=== PATIENT | female | born 1975 | race Caucasian/White ===

== ENCOUNTER → 2023-07-13 | Emergency (ER) | payer OTHER ==
[~2023-07-13] MED LIST: ACETAMINOPHEN 1000 MG/100 ML BAG IVPB ONE; ACETAMINOPHEN 325 MG TABLET (FP) ONE; ACETAMINOPHEN 500 MG TABLET (FP) ONE; ACETAMINOPHEN 500 MG TABLET (FP) PO ONE; IBUPROFEN 600 MG TABLET (FP) PO ONE
[2023-07-13 09:02] VITALS: BP 133/70; PULSE 77; RESP 20; TEMP 98.1; BMI 32.8
[2023-07-13 10:33] LABS: EOS % 3.7 % (0-4.5); HEMOGLOBIN 11.5 GM/dL (10.7-15.3); LYMPH % 31.6 % (8-40); MCH 27.3 pg (25.7-33.7); MCHC 32.8 g/dl (32.0-36.0); MEAN CELL VOLUME 83.4 fl (80-96); MEAN PLT VOLUME 7.8 fl (7.5-11.1); NEUT % 55.7 % (42.8-82.8); PLATELET COUNT 414 10^3/uL (134-434); RDW 15.7 % (11.6-15.6); WHITE BLOOD COUNT 7.9 K/mm3 (4.0-10.0)
[2023-07-13 10:52] LABS: URINE APPEARANCE CLOUDY; URINE COLOR RED
[2023-07-13 10:56] LABS: EPI CELLS 0 /uL (0-25.1); HCG,QUALITATIVE URINE Negative; HYALINE CASTS 0 /uL (0-3.1); PH,URINE 6.5 (5.0-8.0); URINE BACTERIA 52 /uL (0-1359); URINE BILIRUBIN NEGATIVE (NEGATIVE); URINE GLUCOSE (UA) NEGATIVE (NEGATIVE); URINE KETONE NEGATIVE (NEGATIVE); URINE LEUK ESTERASE 1+ (NEGATIVE); URINE NITRITE NEGATIVE (NEGATIVE); URINE PROTEIN 3+ (NEGATIVE); URINE UROBILINOGEN 0.2 mg/dL (0.2-1.0)
[2023-07-13 11:02] LABS: ALBUMIN 3.3 g/dl (3.4-5.0); BLOOD UREA NITROGEN 14.9 mg/dL (7-18); CALCIUM 8.2 mg/dL (8.5-10.1)
[2023-07-13 11:04] LABS: CREATININE 0.7 mg/dL (0.55-1.3); URINE RBC 31713.6 /uL (0-23.9); URINE WBC 112.1 /uL (0-25.8); YEAST NEGATIVE (NEGATIVE)
[2023-07-13 11:06] LABS: BILIRUBIN,TOTAL 0.2 mg/dL (0.2-1); TOT PROT 7.1 g/dl (6.4-8.2)
== END | disposition left against medical advice (07) ==
LOC: JERFT 08:53 → JER 08:53
DX: N93.9 Abnormal uterine and vaginal bleeding, unspecified (principal); R10.32 Left lower quadrant pain; R42 Dizziness and giddiness; D25.9 Leiomyoma of uterus, unspecified; R11.0 Nausea
CPT/HCPCS: 36415; 76830-TC; 80053; 81003; 84703; 85025; 86850; 86900; 86901; 87086; 99284-25

== ENCOUNTER 2023-08-04 11:39 | Emergency (ER) | payer SELFPAY ==
[2023-08-04 11:58] VITALS: BP 107/69; PULSE 82; RESP 18; TEMP 98.2; BMI 32.8
[2023-08-04 14:33] LABS: BASO % 0.9 % (0-2.0); EOS % 3.2 % (0-4.5); HEMOGLOBIN 11.5 GM/dL (10.7-15.3); LYMPH % 31.6 % (8-40); MCH 26.4 pg (25.7-33.7); MCHC 31.9 g/dl (32.0-36.0); MEAN CELL VOLUME 82.9 fl (80-96); MONO % 8.7 % (3.8-10.2); NEUT % 55.6 % (42.8-82.8); PLATELET COUNT 447 10^3/uL (134-434); RBC 4.35 M/mm3 (3.60-5.2); RDW 14.8 % (11.6-15.6); WHITE BLOOD COUNT 7.2 K/mm3 (4.0-10.0)
[2023-08-04 14:56] LABS: POTASSIUM 4.6 mmol/L (3.5-5.1)
[2023-08-04 14:58] LABS: ALBUMIN 3.4 g/dl (3.4-5.0); BLOOD UREA NITROGEN 15.1 mg/dL (7-18); MAGNESIUM 2.1 mg/dL (1.8-2.4)
[2023-08-04 15:01] LABS: CREATININE 0.7 mg/dL (0.55-1.3)
[2023-08-04 15:02] LABS: BILIRUBIN,TOTAL 0.2 mg/dL (0.2-1); TOT PROT 7.4 g/dl (6.4-8.2)
== END 2023-08-04 15:35 | disposition home or self-care (01) ==
LOC: JER 11:39
DX: R07.89 Other chest pain (principal); R00.2 Palpitations; N64.4 Mastodynia
CPT/HCPCS: 36415; 71046-TC-FY; 80053; 83735; 84443; 84484; 85025; 93005; 93010; 99285-25

== ENCOUNTER 2024-08-01 15:16 | Emergency (ER) | payer SELFPAY ==
[2024-08-01 15:31] VITALS: BP 111/95; PULSE 78; RESP 20; TEMP 98.4; BMI 30.9
[2024-08-01] MEDS ORDERED: IBUPROFEN 600 MG TABLET (FP) PO ONE (16:10)
[2024-08-01] MEDS ORDERED: ACETAMINOPHEN 500 MG TABLET (FP) ONE (16:11)
[2024-08-01] MEDS ORDERED: METHOCARBAMOL 500 MG TABLET ONE (16:11)
[2024-08-01] MEDS: IBUPROFEN 600 MG TABLET (FP) PO ONE (16:15)
[2024-08-01] MEDS: METHOCARBAMOL 500 MG TABLET PO ONE (16:15)
[2024-08-01] MEDS: ACETAMINOPHEN 500 MG TABLET (FP) PO ONE (16:15)
[2024-08-01 18:40] LABS: HIV INTERPRETATION NEGATIVE (NEGATIVE)
== END 2024-08-01 17:45 | disposition home or self-care (01) ==
LOC: JERFT 15:16
DX: M54.50 Low back pain, unspecified (principal); M25.561 Pain in right knee; M25.512 Pain in left shoulder; R07.81 Pleurodynia; W10.9XXA Fall (on) (from) unspecified stairs and steps, initial encounter
CPT/HCPCS: 36415; 71101-TC-LT-FY; 72100-TC-FY; 73030-TC-LT-FY; 73562-TC-RT-FY; 86803; 87389; 99284-25